=== PATIENT | female | born 1995 | race Caucasian/White ===

== ENCOUNTER 2017-04-03 23:11 | Emergency (ER) | payer OTHER ==
[2017-04-03 23:21] VITALS: BP 136/102
[2017-04-03] MEDS ORDERED: Acetaminophen 325 MG Tab PO ONE (23:21)
--- NOTE | 2017-04-03 23:48 | EDM.PDOC ---
ED HPI GENERAL MEDICAL PROBLEM - General Chief Complaint: Lower Extremity Injury/Pain Stated Complaint: FALL Time Seen by Provider: 04/03/17 23:16 Source of Information: Reports: Patient, RN Notes Reviewed - History of Present Illness INITIAL COMMENTS - FREE TEXT/NARRATIVE: 21-year-old female got bucked off a horse about 2-3 hours ago. She landed on her right hip and right flank area. She does have a lot of pain in that area. SHe did not injure her head neck or back. There was no LOC. She denies chest pain or difficulty breathing. She has been brought in private vehicle. This was called as a trauma alert minor due to mechanism of injury. Patient is seen at time of arrival. Right Hip Pain Score (Numeric/FACES): 8 - Related Data Allergies Allergy/AdvReac Type Severity Reaction Status Date / Time No Known Allergies Allergy Verified 04/03/17 23:18 Home Meds: Home Meds Norgestimate-Ethinyl Estradiol [Sprintec 28 Day Tablet] 1 tab PO DAILY 04/03/17 [History] Past Medical History - Past Surgical History HEENT Surgical History: Reports: Oral Surgery Social & Family History - Tobacco Use Smoking Status *Q: Never Smoker - Recreational Drug Use Recreational Drug Use: No Review of Systems - Review of Systems Review Of Systems: See Below Constitutional: Reports: No Symptoms Eyes: Reports: No Symptoms Ears: Reports: No Symptoms Nose: Reports: No Symptoms Mouth/Throat: Reports: No Symptoms Respiratory: Denies: Shortness of Breath, Pleuritic Chest Pain Cardiovascular: Denies: Chest Pain GI/Abdominal: Denies: Abdominal Pain, Nausea, Vomiting Musculoskeletal: Reports: Joint Pain (Right hip and right flank) Skin: Reports: Other (She does have a superficial abrasion injury to the right flank) Neurological: Denies: Numbness, Tingling ED EXAM, GENERAL - Physical Exam Exam: See Below General Appearance: Alert, Mild Distress Eye Exam: Bilateral Eye: PERRL Throat/Mouth: Normal Inspection Head: Atraumatic Neck: Normal Inspection, Supple, Full Range of Motion Respiratory/Chest: No Respiratory Distress, Lungs Clear Cardiovascular: Regular Rate, Rhythm GI/Abdominal: Non-Tender Back Exam: CVA Tenderness (R). No: Paraspinal Tenderness, Vertebral Tenderness Extremities: Leg Pain (There is tenderness over the lateral aspect of the right hip,), Limited Range of Motion (Right hip secondary to discomfort with motion), Other Neurological: Alert, Oriented, No Motor/Sensory Deficits Skin Exam: Warm, Dry, Other (Very superficial abrasion right flank) Course - Vital Signs Last Recorded V/S: Last Vital Signs Temp 97.5 F 04/03/17 23:18 Pulse 80 04/03/17 23:18 Resp 18 04/03/17 23:18 BP 136/102 H 04/03/17 23:18 Pulse Ox 100 04/03/17 23:18 - Orders/Labs/Meds Orders: Active Orders 24 hr Category Date Time Status Hip Min 2V or 3V w Pelvis Rt [CR] Stat Exams 04/03/17 23:22 Taken Meds: Medications Discontinued Medications Generic Name Dose Route Start Last Admin Trade Name Tania PRN Reason Stop Dose Admin Acetaminophen 975 mg 04/03/17 23:21 04/03/17 23:25 Tylenol PO 04/03/17 23:22 975 mg NOW ONE Administration - Re-Assessments/Exams Free Text/Narrative Re-Assessment/Exam: 04/03/17 23:51 X-rays of the hip and pelvis show no fracture Departure - Departure Time of Disposition: 23:46 Disposition: Home, Self-Care 01 Condition: Fair Clinical Impression: Contusion, hip Qualifiers: Encounter type: initial encounter Laterality: right Qualified Code(s): S70.01XA - Contusion of right hip, initial encounter Abrasion of flank Qualifiers: Encounter type: initial encounter Qualified Code(s): S30.811A - Abrasion of abdominal wall, initial encounter - Discharge Information Referrals: PCP,None [Primary Care Provider] - Forms: ED Department Discharge Additional Instructions: Ice packs as needed for swelling and discomfort, alternate Tylenol and ibuprofen as needed for pain, rest, increase activity slowly as tolerated, this will gradually get better over the next 2-3 days. Follow-up clinic if not getting back to normal within 5-7 days as expected. Return to ED as needed. - My Orders Last 24 Hours: My Active Orders 04/03/17 23:22 Hip Min 2V or 3V w Pelvis Rt [CR] Stat - Assessment/Plan Last 24 Hours: My Active Orders 04/03/17 23:22 Hip Min 2V or 3V w Pelvis Rt [CR] Stat
--- NOTE | 2017-04-04 08:39 | CR ---
Pelvis and right hip: AP view of the pelvis was obtained as well as AP and frog-leg lateral views of the right hip. Comparison: No previous study. Joint spaces within both hips are maintained. Sacroiliac joints are within normal limits. No fracture or other abnormality is seen. Impression: 1. No abnormality is identified on AP pelvis or on two-view right hip exam. Diagnostic code #1
== END 2017-04-03 23:59 | disposition home or self-care (01) ==
LOC: JD.ED 23:11 → SUPCPDRO 23:11 → JD.ED 23:59
DX: S70.01XA Contusion of right hip, initial encounter (principal); S30.811A Abrasion of abdominal wall, initial encounter; V80.010A Animal-rider injured by fall from or being thrown from horse in noncollision accident, initial encounter
CPT/HCPCS: 73502; 99284; A9270; 99282